=== PATIENT | male | born 1975 | race Caucasian/White ===

== ENCOUNTER 2025-07-28 09:16 | Emergency (ER) | payer OTHER ==
[~2025-07-28] VITALS: Ht 175.3 cm; Wt 73.0 kg
[2025-07-28 09:51] VITALS: TEMP 98.3
[2025-07-28 10:03] LABS: PLATELET COUNT (AUTO) 271 K/uL (150-450); RED BLOOD CELL COUNT(AUTO) 5.33 MIL/uL (4.5-6.0); RED CELL DISTRIBUTION WIDTH 12.6 % (11.5-15.0); WHITE BLOOD COUNT (AUTO) 10.5 K/uL (4.3-11.0)
[2025-07-28 10:20] LABS: ASPARTATE AMINOTRANSFERASE 21.0 U/L (15-37); CALCIUM, SERUM 9.3 mg/dL (8.5-10.1); CREATININE 1.2 mg/dL (0.6-1.3); SODIUM SERUM 140.0 mmol/L (136-145); TOTAL PROTEIN, SERUM 7.6 g/dL (6.4-8.2); UREA NITROGEN, BLOOD 17.0 mg/dL (7-18)
[2025-07-28 10:53] LABS: APPEARANCE,URINE CLEAR (CLEAR); BLOOD, URINE NEGATIVE Ery/uL (NEGATIVE); LEUKOCYTE ESTERASE ,URINE NEGATIVE (NEGATIVE); NITRITE, URINE NEGATIVE (NEGATIVE); UGLUCOSE NEGATIVE (NEGATIVE)
[2025-07-28 12:42] VITALS: BP 125/84; O2SAT 99
== END 2025-07-28 11:15 | disposition home or self-care (01) ==
LOC: ER 09:25
DX: R10.32 Left lower quadrant pain (principal); R19.7 Diarrhea, unspecified; E78.5 Hyperlipidemia, unspecified; M10.9 Gout, unspecified
CPT/HCPCS: 36415; 80048-TC; 80076-TC; 83690-TC; 85025-TC; J7030